=== PATIENT | male | born 1965 | race Caucasian/White ===

== ENCOUNTER 2023-09-03 13:20 | Observation (INO) | payer BC ==
[2023-09-03 13:59] VITALS: BMI 35.6
[2023-09-03] MEDS ORDERED: Ondansetron PF 4 MG/2 ML Vial IVP PRN (14:14)
[2023-09-03] MEDS ORDERED: Ondansetron ODT 4 MG TAB PO PRN (14:14)
[2023-09-03] MEDS ORDERED: Acetaminophen 650 MG Suppository PR PRN (14:14)
[2023-09-03] MEDS ORDERED: Acetaminophen 325 MG TAB PO PRN (14:14)
[2023-09-03] MEDS ORDERED: Glucagon 1 MG/ML KIT IM PRN (15:03)
[2023-09-03] MEDS ORDERED: Dextrose 50% Abboject 50 ML SYRINGE SLOW IVP PRN (15:03)
[2023-09-03] MEDS ORDERED: Dextrose 5% in Water 1,000 ML IV PRN (15:03)
[2023-09-03] MEDS ORDERED: HumaLOG 300 UNITS/3 ML VIAL SC PRN ×2 (15:03)
[2023-09-03] MEDS: Sodium Chloride 0.9% 1,000 ML IV SCH ×2 (15:16→21:30)
[2023-09-04] MEDS: Sodium Chloride 0.9% 1,000 ML IV SCH ×3 (04:20→18:19)
[2023-09-04] MEDS ORDERED: Spironolactone 25 MG TAB PO SCH (08:00)
[2023-09-04] MEDS ORDERED: Hydrochlorothiazide 25 MG TAB PO SCH (09:00)
[2023-09-04] MEDS ORDERED: dilTIAZem CD 240 MG CAP PO SCH (09:00)
[2023-09-04] MEDS ORDERED: Escitalopram Oxalate 10 mg Tablet PO SCH (09:00)
[2023-09-04] MEDS ORDERED: Carvedilol 25 MG TAB PO SCH (09:00)
[2023-09-04] MEDS ORDERED: Losartan 25 MG TAB PO SCH (09:00)
[2023-09-04 10:04] LABS: #Eosinphils 0.1 thou/uL (0.0-0.7); #Monocytes 0.4 thou/uL (0.11-0.59); #Neutrophils 3.1 thou/uL (1.40-6.50); %Basophils 0.6 % (0.0-1.0); %Lymphocytes 26.3 % (21.0-51.0); %Monocytes 8.6 % (0.0-10.0); %Neutrophils 62.1 % (42.0-75.0); Hematocrit 42.1 % (42.0-52.0); Hemoglobin 14.1 g/dL (14.0-18.0); Mean Corpuscular HGB CONC 33.5 g/dL (32.0-36.0); Mean Corpuscular Hemoglobin 30.1 pg (27.0-31.0); Mean Platelet Volume 9.6 fL (7.4-10.4); Platelet Count 256 10x3/uL (130-400); RBC Distribution Width 12.8 % (11.5-14.5); Red Blood Cell (RBC) Count 4.68 mill/uL (4.70-6.10)
[2023-09-04 12:26] LABS: Hemoglobin A1c 8.7 % (4.0-6.0)
[2023-09-04 15:15] LABS: ALT (SGPT) 23 U/L (8-55); AST (SGOT) 20 U/L (5-34); Albumin 3.9 g/dL (3.5-5.0); Alkaline Phosphatase 49 U/L (40-110); Anion Gap 13 mmol/L (10-20); BUN (Urea Nitrogen) 34 mg/dL (8.4-25.7); Bilirubin, Direct 0.3 mg/dL (0.1-0.3); Bilirubin, Total 1.1 mg/dL (0.2-1.2); Calc. Creatinine Clearance 121 mL/min (70-130); Calcium 7.8 mg/dL (7.8-10.44); Carbon Dioxide 19 mmol/L (22-29); Chloride 106 mmol/L (98-107); Estimated GFR 95; Glucose 188 mg/dL (70-105); Magnesium 1.8 mg/dL (1.6-2.6); Potassium 3.7 mmol/L (3.5-5.1); Protein, Total 6.6 g/dL (6.0-8.3); Sodium 134 mmol/L (136-145)
[2023-09-04 16:09] VITALS: BP 126/65; TEMP 98.2
== END 2023-09-04 18:43 | disposition home or self-care (01) ==
LOC: INTOOBSV 13:20 → SURG A 13:20
PROVIDERS: ADMIT Family Medicine; ATTEND Family Medicine
DX: K56.609 Unspecified intestinal obstruction, unspecified as to partial versus complete obstruction (principal); E11.9 Type 2 diabetes mellitus without complications; I10 Essential (primary) hypertension; I48.91 Unspecified atrial fibrillation; N17.9 Acute kidney failure, unspecified; E87.1 Hypo-osmolality and hyponatremia; E78.5 Hyperlipidemia, unspecified; F17.200 Nicotine dependence, unspecified, uncomplicated; Z88.8 Allergy status to other drugs, medicaments and biological substances; Z79.82 Long term (current) use of aspirin; Z79.4 Long term (current) use of insulin; Z79.899 Other long term (current) drug therapy; Z90.89 Acquired absence of other organs; Z98.890 Other specified postprocedural states
CPT/HCPCS: 36415; 36416; 80048; 80076; 83036; 83735; 84443; 85025; 86850; 86900; 86901; 96360; 96361; G0378; J7050